=== PATIENT | male | born 1980 | race Caucasian/White ===

== ENCOUNTER 2020-09-01 16:26 | Emergency (ER) | payer BC ==
[~2020-09-01] VITALS: Ht 190.5 cm; Wt 128.0 kg
[2020-09-01] MEDS ORDERED: LORazepam 1MG TABLET PO ONE ×2 (17:30→18:00)
[2020-09-01] MEDS ORDERED: KETOROLAC 30 MG/1 ML IM ONE (17:30)
[2020-09-01] MEDS ORDERED: PLEASE ENTER HEIGHT AND WEIGHT MC SCH (17:30)
[2020-09-01 17:32] LABS: BASOPHILS % (AUTO) 0 % (0-1); EOSINOPHILS % (AUTO) 1 % (1-7); LYMPHOCYTES % (AUTO) 24 % (22-44); MEAN CORPUSCULAR HEMOGLOBIN 30.9 pg (27.5-34.5); MEAN CORPUSCULAR HGB CONC 35.2 g/dL (33.2-36.2); MEAN PLATELET VOLUME 7.7 fL (7.4-10.4); MONOCYTES % (AUTO) 8 % (2-9); NEUTROPHILS % (AUTO) 67 % (42-75); PLATELET COUNT 343 x10^3/uL (130-400); RED BLOOD COUNT 5.16 x10^6/uL (4.38-5.82); RED CELL DISTRIBUTION WIDTH 13.7 % (9.4-14.8)
[2020-09-01 17:33] LABS: MD NO
[2020-09-01 17:44] LABS: ALANINE AMINOTRANSFERASE 71 U/L (12-78); ALBUMIN 4.1 g/dL (3.4-5.0); ANION GAP 5 mmol/L (5-15); CALCIUM 8.9 mg/dL (8.5-10.1); CHLORIDE 107 mmol/L (98-107); CREATININE 1.15 mg/dL (0.7-1.3)
[2020-09-01] MEDS ORDERED: KETOROLAC 30 MG/1 ML ONE (17:44)
[2020-09-01] MEDS ORDERED: LORazepam 1MG TABLET ONE (17:45)
[2020-09-01 17:49] LABS: ALKALINE PHOSPHATASE 100 U/L (45-117); BILIRUBIN,TOTAL 0.5 mg/dL (0.2-1.0); TOTAL PROTEIN 7.7 g/dL (6.4-8.2); TROPONIN I < 0.015 ng/mL (0.000-0.045)
--- NOTE | 2020-09-01 17:49 | NUR ---
PT RESTING IN BED, VSS, ADMIN PAIN AND ANXITY MEDS, HEIGHT AND WEIGHT IN SYSTEM
[2020-09-01 18:16] VITALS: BP 132/82
== END 2020-09-01 18:26 | disposition home or self-care (01) ==
LOC: ED 16:47
DX: R07.89 Other chest pain (principal); I10 Essential (primary) hypertension; Z87.891 Personal history of nicotine dependence
CPT/HCPCS: 36415; 71046; 80053; 84484; 85025; 93005; 96372; 99285; J1885